=== PATIENT | female | born 1995 | race Caucasian/White ===

== ENCOUNTER 2017-09-29 22:20 | Inpatient (IN) | payer OTHER ==
[~2017-09-29] VITALS: Ht 170.2 cm; Wt 75.3 kg
[~2017-09-29 22:20] MED LIST: IBUP-2071 PO; PREN1TAB80 PO
[2017-09-29] MEDS ORDERED: OXYTOCIN 30 UNITS/LACT RINGERS 500 ML IV ONE (22:30)
[2017-09-29] MEDS ORDERED: RINGERS SOLUTION,LACTATED 1,000 ML IV SCH (22:30)
[2017-09-29] MEDS ORDERED: RINGERS SOLUTION,LACTATED 1,000 ML IV PRN (22:30)
[2017-09-29] MEDS ORDERED: METOCLOPRAMIDE HCL 5 MG/ML 2 ML VIAL IVP PRN (22:30)
[2017-09-29] MEDS ORDERED: CITRIC ACID/SODIUM CITRATE 30 ML SOLUTION UDCUP PO PRN (22:30)
[2017-09-29] MEDS ORDERED: LIDOCAINE HCL/PF 1% 30 ML VIAL INJ PRN (22:30)
[2017-09-29] MEDS ORDERED: FentaNYL CITRATE-PF 100 MCG/2 ML VIAL IVP PRN (22:30)
[2017-09-29 22:45] VITALS: BP 125/77
[2017-09-29 23:33] LABS: BASOPHILS % (AUTO) 0.8 % (0.0-2.0); EOSINOPHILS % (AUTO) 0.7 % (1.0-6.0); HEMATOCRIT 33.1 % (36-46); HEMOGLOBIN 11.3 g/dL (12.0-16.0); LYMPHOCYTES # (AUTO) 1.6 K/uL (1.0-4.8); MEAN CORPUSCULAR HEMOGLOBIN 26.2 pg (26.0-34.0); MEAN CORPUSCULAR VOLUME 77 fL (80-100); MONOCYTES # (AUTO) 0.6 K/uL (0.1-1.0); MONOCYTES % (AUTO) 7.4 % (2.0-9.0); NEUTROPHILS # (AUTO) 5.8 K/uL (1.8-7.7); NEUTROPHILS % (AUTO) 71.1 % (40.0-70.0); PLATELET COUNT (AUTO) 214 K/uL (150-450); RED BLOOD CELL COUNT(AUTO) 4.29 MIL/uL (4.00-5.20); RED CELL DISTRIBUTION WIDTH 14.2 % (11.5-14.5)
[2017-09-30] MEDS ORDERED: RINGERS SOLUTION,LACTATED 1,000 ML IV SCH (03:36)
[2017-09-30] MEDS ORDERED: MISOPROSTOL 25 MCG TABLET VG SCH (03:45)
[2017-09-30] MEDS ORDERED: LIDOCAINE HCL/PF 2% 5 ML VIAL ONE (07:28)
[2017-09-30] MEDS ORDERED: ROPIVACAINE HCL/PF 0.2% 100 ML ED ONE (07:28)
[2017-09-30] MEDS ORDERED: LIDOCAINE HCL/PF 1% 2 ML VIAL ONE (07:42)
[2017-09-30] MEDS ORDERED: OXYGEN THERAPY IH SCH (08:00)
[2017-09-30] MEDS ORDERED: FentaNYL/BUPIV 0.125%/NS/PF 200 ML ED PRN (08:05)
[2017-09-30] MEDS ORDERED: NALBUPHINE HCL 10 MG/ML VIAL IVP PRN (08:15)
[2017-09-30] MEDS ORDERED: ONDANSETRON HCL 4 MG/2 ML VIAL IVP PRN (08:15)
[2017-09-30] MEDS ORDERED: DiphenhydrAMINE HCL 50 MG/ML VIAL IVP PRN (08:15)
[2017-09-30] MEDS ORDERED: OXYTOCIN 30 UNITS/LACT RINGERS 500 ML IV PRN (09:33)
[2017-09-30] MEDS ORDERED: ACETAMINOPHEN/CODEINE 300-30 MG TABLET PO PRN (10:45)
[2017-09-30] MEDS ORDERED: LANOLIN 7 GM OINTMENT TP PRN (10:45)
[2017-09-30] MEDS ORDERED: GLYCERIN/WITCH HAZEL LEAF 40 PADS JAR TP PRN (10:45)
[2017-09-30] MEDS ORDERED: BENZOCAINE 20%/MENTHOL 56 GM SPRAY CANISTER TP PRN (10:45)
[2017-09-30] MEDS: IBUPROFEN 800 MG TABLET PO SCH ×2 (12:08→17:35)
[2017-09-30] MEDS: ACETAMINOPHEN/CODEINE 300-30 MG TABLET PO PRN ×3 (14:27→21:25)
[2017-09-30] MEDS: MAGNESIUM HYDROXIDE SUSPENSION 30 ML UDCUP PO SCH (21:20)
[2017-10-01] MEDS: IBUPROFEN 800 MG TABLET PO SCH ×2 (00:13→06:17)
[2017-10-01] MEDS ORDERED: IBUP-2070 PO (08:24)
[2017-10-01] MEDS ORDERED: FERR-89 PO (08:25)
[2017-10-01] MEDS ORDERED: DSS100 PO (08:25)
[2017-10-01] MEDS: MAGNESIUM HYDROXIDE SUSPENSION 30 ML UDCUP PO SCH (09:02)
== END 2017-10-01 12:20 | disposition home or self-care (01) | DRG 775 ==
LOC: 4S 22:20 → OBSVTOIN 22:20
PROVIDERS: ADMIT Obstetrics & Gynecology; ATTEND Obstetrics & Gynecology
PROC: 10E0XZZ Delivery of Products of Conception, External Approach (ICD-10-PCS; principal; 2017-09-30)
PROC: 0UQMXZZ Repair Vulva, External Approach (ICD-10-PCS; 2017-09-30)
PROC: 3E0S3BZ Introduction of Anesthetic Agent into Epidural Space, Percutaneous Approach (ICD-10-PCS; 2017-09-30)
PROC: 00HU33Z Insertion of Infusion Device into Spinal Canal, Percutaneous Approach (ICD-10-PCS; 2017-09-30)
DX: O71.82 Other specified trauma to perineum and vulva (principal); Z3A.39 39 weeks gestation of pregnancy; Z37.0 Single live birth
CPT/HCPCS: J2590; J2795; J3490; J7120